=== PATIENT | female | born 1960 | race Caucasian/White ===

== ENCOUNTER 2024-01-29 14:50 | Outpatient (CLI) | payer BC, SELFPAY ==
--- OUTSIDE RECORDS SUMMARY | 2024-01-29 14:54 | XMS_ITS | Clinical Summary ---
Author Organization [facility] Address [place], [place] [address] Care Team Providers Care Functional Manager Name Role Phone nEa Alegre MD Primary Care Provider Allergies Active Allergy Reactions Criticality Noted Date Comments Tetracycline Nausea And Vomiting 11/05/2006 Medications Medication Sig Dispensed Refills Start Date End Date Status MULTIVITAMIN TAB take 1 tablet by oral route once daily with food 0 12/18/2006 Active ergocalciferol, vitamin D2, 2,000 unit Tab Take by mouth. 0 03/06/2013 Active Active Problems Problem Noted Date Diagnosed Date Abdominal bloating 03/06/2013 Hematuria 12/18/2006 Other malaise and fatigue 12/18/2006 Migraine, unspecified, witho ut mention of intractable migraine without mention of status migrainosus 12/18/2006 Immunizations Name Administration Dates Next Due Influenza, IIV3 (Age >=3 years) 06/22/2012,04/29 Tdap 06/08/2010 Family History Medical History Relation Name Comments Heart Disease Father triple bypass, Pulmonary Embolism Other Father Parkinsons Stroke Maternal Grandfather Diabetes Maternal Grandmother Age rel ated Hyperlipidemia Mother Cancer-breast Paternal Grandmother Relation Name Status Comments Father Maternal Grandfather Maternal Grandmother Mother Paternal Grandmother Social History Tobacco Use Types Packs/Day Years Used Date Smoking Tobacco: Never Smokeless Tobacco: Never Alcohol Use Standard Drinks/Week Comments Yes 0 (1 standard drink = 0.6 oz pur e alcohol) 1-2 drinks per week Sex and Gender Information Value Date Recorded Sex Assigned at Not on file Gender Identity Not on file Sexual Orientation Not on file Obstetrics History Para Term AB IAB SAB Ectopic Multiple Livin g Live Births 4 2 2 2 2 Date Outcome GA Total Labor Labor/2nd/3rd Weight Sex Type Anes PTL Sussy A1 A5 Name Clin Term Term 12/10 41w 0d 3.86 kg (8 lb 8 oz) F Vag Living Amber 07/16 40w 0d 4.05 kg (8 lb 15 oz) M Vag Living Ruddy Last Filed Vital Signs Vital Sign Reading Time Taken Comments Blood Pressure 90/60 03/06/2013 1:52 PM CDT Pulse 66 03/06/2013 1:52 PM CDT Temperature - - Respiratory Rate 18 03/06/2013 1:52 PM CDT Oxygen Saturation - - Inhaled Oxygen Concentration - - Weight 59.5 kg (131 lb 3.2 oz) 03/06/2013 1:52 P M CDT Height 174.5 cm (5' 8.7) 09/05/2012 12:03 PM CS T Body Mass Index 19.54 09/05/2012 12:03 PM [facility] Plan of Treatment Health Maintenance Due Date Last Done Comments Depression screening for age 12+ 1972 BMI (ht and wt on same day) for age 18+ 1978 Zoster (shingles) series for age 50+ (1 of 2) 2010 Mammogram for age 45-75 09/05/2013 09/05/19 13, 09/05/2012, 06/28/2011, Additional history exists Lipids for age 45-75 06/08/2015 06/08/2010, 01/28/2003, 01/28/2003 Tetanus booster 06/08/2020 06/08/2010 Pap test for age 21-65 08/31/2020 8, 08/31/2017, 09/05/2012, Additional history exists COVID-19 vaccine series (2022- season) 2023 Colonoscopy through age 75 05/09/2023 05/09/2013 Influenza for age 50-64 03/09/2024 06/22/20 12 (Completed outside of [facility]), 06/22/2012, 04/29/2010 HIV for age 15-65 Completed 06/08/2010 Hepatitis C screening for age 18-79 Completed 06/08/2010 Tdap Completed 06/08/2010 Pneumococcal series for age 6-64 Aged Out No longer eligible based on patient's age to complete this topic Procedures Procedure Name Priority Date/Time Associated Diagnosis Comments DIESEL ENGINE I PIPE FITTER THIN PREP PAP SCREEN IMAGED Routine 08/31/2017 9:00 AM [facility] SCAN-COLONOSCOPY 05/09/2013 2:00 PM CDT XR MAMMO BILAT SCREEN FFDM (IA) Routine 09/05/2012 12:48 PM [facility] Routine gynecological examination ANTI HIV 1/2 Routine 06/08/2010 12:14 PM [facility] Routine gynecological examination ANTI HCV Routine 06/08/2010 12:14 PM [facility] Routine gynecological examination LIPID PANEL Routine 06/08/2010 12:14 PM [facility] Screening for lipoid disorders from Last 3 Months or Most Recently Relevant to Health Maintenance Results * DIESEL ENGINE I PIPE FITTER THIN PREP PAP SCREEN IMAGED (08/31/2017 9:00 AM [facility]) Case Report Gynecologic Cytology Report ? Case: [id number] ? Authorizing Provider: ??Nicole Drake PA-C ?Collected: ? 08/31/2017 0900 ? First Screen: ?Marbella Blancas ? Received: ?09/02/2017 1249 ? Rescreen: ?Rhona Hall ? Specimen: ?DIESEL ENGINE I PIPE FITTER ThinPrep Vial Screening, Cervical/Vaginal ? 09/10/2017 9:14 AM [facility] INTERPRETATION/ RESULT NEGATIVE FOR INTRAEPITHELIAL LESION OR MALIGNANCY (NIL) (none) 09/10/2017 9:14 AM [facility] IMEN ADEQUACY Satisfactory for evaluation Endocervical component present Scant cellularity 09/10/2017 9:14 AM [facility] HPV REQUEST HPV and PAP 09/10/2017 9:14 AM [facility] Last Pap Date 09/10/2017 9:14 AM [facility] Comment:3 years ago Last Pap Result NIL 8 9:14 AM [facility] Menstrual Status 09/10/2017 9:14 AM [facility] Comment:menopause Automated Review Successful 09/10/2017 9:14 AM [facility] Comment:Specimen processed s uccessfully by automated lunchroom aide device, ThinPrep Imaging System, [employer] ANCILLARY TESTING DIESEL ENGINE I PIPE FITTER HPV Ordered, Please see separate report 09/10/2017 9:14 AM [facility] Note The pap test is a screening technique, not a diagnostic procedure. ??It is used primarily to screen for squamous cancers and precursor lesions. ??Published studies have shown that it is subject to both false negative and false positive results. ??The pap test should not be used as the sole means to diagnose or exclude pre-malignant and malignant lesions. Interpreted at [facility] ([facility], [facility], [facility], [facility], [facility], [facility], [facility]) 09/10/2017 9:14 AM [facility] Other (Cervical/Vagina l) 08/31/2017 9:00 AM [facility] 09/02/2017 12:49 PM [facility] October [facility] [address] [place] [address], [place] * SCAN-COLONOSCOPY (05/09/2013 2:00 PM CDT) Narrative Transcriptions Anjel Jung - 05/09/2013 1:[address] [facility], [address], [place] [address] Patient Name: Abby Hudson Gender: Female Exam Date: 05/09/2013 Visit Number: [id number] Age: 52 Years 8 Months Date of : 1960 Attending MD: Anjel Jung MD Medical Record#: [id number] ----- Procedure: Colonoscopy Indications: Abdominal pain Screening Referring MD: Ena Alegre MD Primary MD: Ena Alegre MD Medications: Intra Procedure Medications: Fentanyl given 0.1 mg by IV Midazolam given 2 mg by IV Complications: No immediate complications Procedure: An examination of the heart and lungs was performed and found to be withinacceptable limits. The patient was therefore deemed a reasonablecandidate for endoscopy and conscious sedation. The risks and benefits of the procedure were explained to the patient.After obtaining informed consent, I medicated the patient and passed thescope without difficulty via the rectum to the cecum. The appendicealorifice and ic valve were identified. The scope was retroflexed duringthe examination The quality of the prep was good (Miralax/Gatorade/2tablets Bisacodyl/Magnesium Citrate). This was a complete examination throughout the entire colon. Findings: Polyp location: ileocecal valve. Quantity: 1. Size: 3 mm. Polyp shape:sessile. Maneuver: polypectomy was performed with a cold snare. Removal: complete. Retrieval: complete. Bleeding: none. this was very subtle and probably was not any significant polyp at all.It has been removed Remainder of the exam is normal. Impression: Polyp? Pathology Results: A: COLON, ILEOCECAL VALVE, POLYP: 1. Colonic mucosa with no diagnostic abnormalities (3 mm polyp was seenand removed per the colonoscopy report) 2. No serrated change, dysplasia or malignancy MICROSCOPIC A: Performed Electronically signed by: Conchita Navarro MD Orders: Patient Education given to patient: Colon: Colon Cancer Prevention Colon Polyps Final Plan: Repeat colonoscopy in 10 years for screening. If you have signs orsymptoms of lower GI illness or a new diagnosis of colon cancer in animmediate family member, you should contact [facility] or your primary providerto discuss whether your next exam should be repeated sooner. Return for a colonoscopy in 10 years. We will attempt to contact you at appropriate intervals via U.S. mail. Wemay not be able to find you or contact you at that time, therefore youshould know that the responsibility for following our recommendation restswith you. If you don't hear from us at the time your procedure is due,please contact our office to schedule an appointment. If your contactinformation should change, please contact our office so that we can updateyour record. Plan Comments: _Electronically signed by: Quique Cohn MD 05/09/2013 [facility] [phone] *Portions of this document may have been recorded using electronic voicerecognition technology. Anjel Jung MD OTHER * XR MAMMO BILAT SCREEN FFDM (09/05/2012 12:48 PM [facility]) Anatomical Region Laterality Modality BREASTS, Breast Left, Breast Right Bilateral Mammography Impressions 09/05/2012 4:38 PM [facility] ??There is no radiographic evidence for malignancy. ??Recommend annual mammograms. A lay language report of this examination will be provided to the patient. MAMMOGRAM ASSESSMENT: ??ACR 1 Negative Narrative 09/05/2012 4:38 PM [facility] XR MAMMO BILAT SCREEN FFDM [G0202.0] CLINICAL HISTORY: ??This is an asymptomatic 52 y.o. patient. INDICATION FOR EXAM: Mammogram Screening. TECHNIQUE: CC & MLO views were obtained. ??This digital study was evaluated with the assistance of Computer-Aided Detection. ?? COMPARISON FILM: Yes 06/28/11 06/08/10 FINDINGS: ??Mammographically, the breast tissue is heterogeneously dense, which could obscure detection of small masses (approximately 51% - 75% glandular). There are no dominant masses, suspicious micro calcifications or areas of architectural distortion. Procedure Note Ida Medrano MD - 09/05/2012 XR MAMMO BILAT SCREEN FFDM [G0202.0] CLINICAL HISTORY: This is an asymptomatic 52 y.o. patient. INDICATION FOR EXAM: Mammogram Screening. TECHNIQUE: CC & MLO views were obtained. This digital study was evaluatedwith the assistance of Computer-Aided Detection. COMPARISON FILM: Yes 06/28/11 06/08/10 FINDINGS: Mammographically, the breast tissue is heterogeneously dense,which could obscure detection of small masses (approximately 51% - 75%glandular). There are no dominant masses, suspicious micro calcificationsor areas of architectural distortion. IMPRESSION: There is no radiographic evidence for malignancy. Recommendannual mammograms. A lay language report of this examination will be provided to the patient. MAMMOGRAM ASSESSMENT: ACR 1 Negative Ena Alegre MD MAMMO * ANTI HCV (06/08/2010 12:14 PM [facility]) ANTI HCV Non-reacti ve [facility] Blood specimen (specimen) BLOOD SPECIMEN / Unknown 06/08/2010 12:14 PM [facility] 06/08/2010 12:08 PM [facility] Adrianna Patiño MD SEND OUTS [facility] [place] ZIP [address] [address] * ANTI HIV 1/2 (06/08/2010 12:14 PM [facility]) ANTI HIV 1/2 Non-reacti ve [facility] Blood specimen (specimen) BLOOD SPECIMEN / Unknown 06/08/2010 12:14 PM [facility] 06/08/2010 12:08 PM [facility] Adrianna Patiño MD SEND OUTS [facility] [place]NAL ZIP [address] [place] [address] * LIPID PANEL (06/08/2010 12:14 PM [facility]) Pathologist [facility] CHOLESTEROL,TOTAL 186 110 - 199 mg/dL [facility] TRIGLYCERIDES 57 40 - 149 mg/dL [facility] HDL CHOLESTEROL 93 >40 mg/dL [facility] CHOL/HDL RATIO 2.00 <4.51 [facility] LDL CHOLESTEROL 82 <131 mg/dL [facility] PATIENT STATUS Fasting [facility] Blood specimen (specimen) BLOOD SPECIMEN / Unknown 06/08/2010 12:14 PM [facility] 06/08/2010 12:08 PM [facility] Adrianna Patiño MD CHEMISTRY [facility] [place]NAL ZIP [address] [place] [id number] from Last 3 Months or Most Recently Relevant to Health Maintenance Care Teams Functional Manager Relationship Specialty Start Date End Date Ena Alegre MD [address] [place] [address] PCP - General 12/17/06
--- OUTSIDE RECORDS SUMMARY | 2024-01-29 14:54 | XMS_ITS | Clinical Summary ---
Author Organization [facility] Address [address] [address] Phone Care Team Providers Care Roller Hand Name Role Phone Elsewhere, Pcp Primary Care Provider Unavailabl e Allergies Active Allergy Reactions Criticality Noted Date Comments Tetracycline 01/10/2012 Medications Medication Sig Dispensed Refills Start Date End Date Status ibuprofen (MOTRIN) 800 MG tablet Take 1 Tab by mouth three times a day. Administer with food. 42 Tab 0 01/10/2012 Active ondansetron (ZOFRAN) 4 MG tablet Take 1 Tab by mouth every eight hours as needed for Nausea. 10 Tab 0 01/10/2012 Active Social History Tobacco Use Types Packs/Day Years Used Date Smoking Tobacco: Never Assessed Sex and Gender Information Value Date Recorded Sex Assigned at Not on file Gender Identity Not on file Sexual Orientation Not on file Obstetrics History Last Filed Vital Signs Vital Sign Reading Time Taken Comments Blood Pressure 134/65 01/10/2012 6:55 PM CDT Pulse 52 01/10/2012 6:55 PM CDT Temperature 36.5 ??C (97.7 ??F) 01/10/2012 6:55 PM CD T Respiratory Rate 16 01/10/2012 6:55 PM CDT Oxygen Saturation 98% 01/10/2012 6:55 PM CDT Inhaled Oxygen Concentration - - Weight 56.7 kg (125 lb) 01/10/2012 6:55 PM CDT Height 175.3 cm (5' 9) 01/10/2012 6:55 PM CDT Body Mass Index 18.46 01/10/2012 6:55 PM CDT Plan of Treatment Not on file Care Teams Roller Hand Relationship Specialty Start Date End Date Elsewhere, Pcp PCP - General 01/10/12
--- OUTSIDE RECORDS SUMMARY | 2024-01-29 14:55 | XMS_ITS | Patient Health Record ---
Author Organization [facility] Address [address] [place] [address] Care Team Providers Care Asphalt Worker Name Role Phone None, No PCP Primary Care Provider Kathryn Davis Unavailable [phone] Reason For Referral No Information Plan Of Treatment No Information Insurance Providers Payer Name Payer Address Payer Phone Subscriber Number Group Number Insured Name Patient Relationship to Insured Coverage Start Date Coverage End Date BCBS - (Client Bill) [address] [place] [address] [id number] Abby Hudson Self - patient is the insured
--- OUTSIDE RECORDS SUMMARY | 2024-01-29 14:55 | XMS_ITS ---
Author Organization [facility] Address [address] [place] [address] Care Team Providers Care Deckhand Tuna Boat Name Role Phone None, No PCP Primary Care Provider Kathryn Davis Unavailable [phone] Encounters Encounter Location Date Provider Diagnosis [address] [place] [phone] 12/13/2023 Kathryn Shi Plan Of Treatment No Information Progress Notes * Abby HUDSONDOB:1960 (63 yo F)Acc No.[id number]:12/13/2023 Patient:?Abby HUDSON Provider:?Kathryn Shi DO :1960???Age:63 Y???Sex:Female D ate:12/13/2023 Address:[address] [phone] Pcp:No PCP None Subjective: * Chief Complaints: * ??? * Medical History:? Objective: * Vitals:? Assessment: Plan: * Treatment: Care Plan: * Problems:? * Images: Billing Information: * Visit Code:? * Procedure Codes:? * Electronic signature of Ryann Shi DO on 01/29/2024 at 02:54 PM CDT Sign off status: Pending * Provider:Avery Shi DO Date:?2023 Generated for Printi ng/Faxing/eTransmitting on:?01/29/2024 02:54 PM CDT
--- NOTE | 2024-01-29 15:20 | CRLHL7_ITS ---
For Patients: As a result of the Century Cures Act, medical imaging exams and procedure reports are released immediately into your electronic medical record. You may view this report before your referring provider. If you have questions, please contact your health care provider. BILATERAL SCREENING MAMMOGRAM WITH COMPUTER-AIDED DETECTION AND TOMOSYNTHESIS TECHNIQUE: CC and MLO views were obtained. These mammographic images have been obtained using full-field digital technique. These mammographic images were interpreted with the benefit of computer-aided detection. Breast tomosynthesis was used in this interpretation. COMPARISON FILM: 09/02/20, 04/29/19, 09/05/12. FINDINGS: There are scattered areas of fibroglandular density. IMPRESSION: There is no radiographic evidence for malignancy. ASSESSMENT: BI-RADS Category 1: Negative RECOMMENDATION: Routine screening mammogram in 1 year. A lay language report of this examination will be provided to the patient. BRUCE MOODY M.D. Diagnostic Radiologist [email or web address] Transcribed: 2:[address]/Dictated by: Bruce Moody MD @ 01/30/2024 12:08:00 PM (Electronically Signed)
== END 2024-01-29 14:51 | disposition home or self-care (01) ==
LOC: MAMMO 14:52
PROVIDERS: Visit Provider Obstetrics & Gynecology
DX: Z12.31 Encounter for screening mammogram for malignant neoplasm of breast (principal)
CPT/HCPCS: 77063; 77067